=== PATIENT | male | born 1995 | race African-American/Black ===

== ENCOUNTER 2018-12-18 06:58 | Emergency (ER) | payer OTHER ==
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
--- NOTE | 2018-12-18 08:57 | CR ---
[id number] RAD/RAD Chest PA And Lateral EXAM: RAD Chest PA And Lateral CLINICAL DATA: TRAUMA COMPARISON: NO PREVIOUS SIMILAR EXAM IS AVAILABLE. FINDINGS: The lungs are clear. The cardiomediastinal contour is normal. The regional bones and soft tissues are unremarkable. IMPRESSION: NO ACUTE PROCESS. Darrel Castro MD 12/18/18 0856 Thank you for allowing us to participate in the care of your patient.
--- NOTE | 2018-12-18 08:59 | CT ---
[id number] CT/CT Head WO IV EXAM: CT Head WO IV CLINICAL DATA: TRAUMA COMPARISON: NO PREVIOUS SIMILAR EXAM IS AVAILABLE FOR COMPARISON. FINDINGS: There is no mass or mass effect. There is no hemorrhage or hydrocephalus. There are no extra-axial fluid collections. There are no sites of abnormal attenuation. IMPRESSION: NO PLAIN CT EVIDENCE OF ACUTE INTRACRANIAL PROCESS. Darrel Castro MD 12/18/18 0858 Thank you for allowing us to participate in the care of your patient.
--- NOTE | 2018-12-18 09:02 | CT ---
[id number] CT/CT Cervical Spine WO IV Exam: CT Cervical Spine WO IV Clinical Data: TRAUMA COMPARISON: NO PREVIOUS SIMILAR EXAM IS AVAILABLE FINDINGS: There is no fracture or subluxation. The prevertebral soft tissues are unremarkable. The C1-C2 articulation is intact. IMPRESSION: NO FRACTURE OR SUBLUXATION Darrel Castro MD 12/18/18 0901 Thank you for allowing us to participate in the care of your patient.
== END 2018-12-18 09:35 | disposition home or self-care (01) ==
LOC: VM.ED 06:58
DX: S16.1XXA Strain of muscle, fascia and tendon at neck level, initial encounter (principal); V49.9XXA Car occupant (driver) (passenger) injured in unspecified traffic accident, initial encounter; Y92.411 Interstate highway as the place of occurrence of the external cause
CPT/HCPCS: 70450; 71046; 72125; 99284-25